=== PATIENT | female | born 1945 | race African-American/Black ===

== ENCOUNTER 2022-03-04 20:42 | Observation (INO) ==
[2022-03-04] MEDS ORDERED: DILTIAZEM 25 MG/5 ML VIAL IV STA (21:40)
[2022-03-04 21:45] LABS: Basophils # 0.1 10*3/uL (0.0-0.2); Basophils % 0.8 % (0.0-0.8); Eosinophils # 0.1 10*3/uL (0.0-0.87); Eosinophils % 1.3 % (0.00-10.9); Hemoglobin 12.6 GM/DL (12.0-16.0); Immature Granulocytes % 0.2 %; Immature Granulocytes Absolute 0.02 #; Lymphocytes # 1.7 10*3/uL (1.4-4.0); Lymphocytes % 18.4 % (21.3-54.2); Mean Corpuscular HGB Conc 30.7 GM/DL (32-36); Mean Corpuscular Volume 91.1 FL (87-102); Mean Platelet Volume 11.1 FL (9.6-12.0); Monocytes # 0.5 10*3/uL (0.11-0.8); Monocytes % 5.8 % (1.7-12.7); Neutrophils % 73.5 % (38.7-73.9); Platelet Count 344 T/CUMM (130-400); Red Cell Distribution Width 13.6 % (9.3-17.3); White Blood Count 9.2 T/CUMM (4-12)
[2022-03-04] MEDS ORDERED: DILTIAZEM INJ 100 MG in SODIUM CHLORIDE 0.9% 100 ML IV SCH (22:00)
[2022-03-04] MEDS ORDERED: DILTIAZEM CD 120 MG CAPSULE PO STA (22:39)
[2022-03-04 22:44] LABS: Albumin 3.6 G/DL (3.4-5.0); Bilirubin,Total 0.6 MG/DL (0.20-1.00); Osmolality,Calculated 276.4 MOS/KG (273-304); Potassium 3.8 MMOL/L (3.5-5.1); Total Protein 6.9 G/DL (6.4-8.2)
[2022-03-04 22:53] LABS: PT Patient Result 10.7 SECS (10.1-12.1); Partial Thromboplastin Time 21.4 SECS (23.7-32.9)
[2022-03-04] MEDS ORDERED: MAGNESIUM SULF RIDER 1 GM/100 ML PREMIX IV STA ×2 (23:02)
[2022-03-05] MEDS ORDERED: ONDANSETRON 4 MG/2 ML VIAL IV PRN (01:16)
[2022-03-05] MEDS ORDERED: ACETAMINOPHEN 325 MG TABLET PO PRN (01:16)
[2022-03-05] MEDS ORDERED: ALUMINUM/MAGNES/SIMETH MAX STR 30 ML UDCUP PO PRN (01:16)
[2022-03-05] MEDS ORDERED: DEXTROSE 10% 250 ML BAG IV PRN (01:23)
[2022-03-05] MEDS ORDERED: GLUCAGON 1 MG VIAL IM PRN (01:23)
[2022-03-05] MEDS: APIXABAN 5 MG TABLET PO SCH ×2 (03:34→22:34)
[2022-03-05] MEDS: MAGNESIUM OXIDE 400 MG TABLET PO SCH ×2 (03:34→22:34)
[2022-03-05 06:31] LABS: Calcium 9.7 MG/DL (8.5-10.1); Osmolality,Calculated 272.7 MOS/KG (273-304); Potassium 3.4 MMOL/L (3.5-5.1); Thyroid Stimulating Hormone 1.14 uIU/ml (0.358-3.74)
[2022-03-05 06:43] LABS: Basophils # 0.1 10*3/uL (0.0-0.2); Basophils % 0.6 % (0.0-0.8); Eosinophils # 0.1 10*3/uL (0.0-0.87); Eosinophils % 0.7 % (0.00-10.9); Hematocrit 41.6 VOL% (35.7-47.0); Hemoglobin 12.9 GM/DL (12.0-16.0); Immature Granulocytes % 0.5 %; Immature Granulocytes Absolute 0.06 #; Lymphocytes # 1.4 10*3/uL (1.4-4.0); Lymphocytes % 12.7 % (21.3-54.2); Mean Corpuscular Volume 93.1 FL (87-102); Mean Platelet Volume 11.8 FL (9.6-12.0); Monocytes # 0.7 10*3/uL (0.11-0.8); Monocytes % 6.4 % (1.7-12.7); Neutrophils % 79.1 % (38.7-73.9); Platelet Count 289 T/CUMM (130-400); Red Blood Count 4.47 MC/CUMM (3.8-5.5); Red Cell Distribution Width 13.7 % (9.3-17.3); White Blood Count 11.2 T/CUMM (4-12)
[2022-03-05] MEDS ORDERED: POTASSIUM CHLORIDE 20 MEQ TABLET PO ONE (08:21)
[2022-03-05] MEDS: INSULIN REGULAR 100 UNIT/ML SUBCUT SCH ×4 (09:19→22:35)
[2022-03-05] MEDS: DOCUSATE SODIUM 100 MG CAPSULE PO SCH ×2 (09:19→22:34)
[2022-03-05] MEDS: PANTOPRAZOLE 40 MG TABLET PO SCH (09:19)
[2022-03-05] MEDS ORDERED: METOPROLOL TARTRATE 25 MG TABLET PO SCH (12:00)
[2022-03-05 17:54] LABS: Hyaline Casts,Urine 5 /LPF (0-3); Mucus,Urine Occasional /LPF (Occasional); RBC,Urine 2 /HPF (0-4); Squamous Epithelial Cell,Urine Occasional /HPF (0-10)
[2022-03-05 17:55] LABS: Bilirubin,Urine Moderate mg/dL (Negative); Blood, Urine Negative (Negative); Glucose,Urine (UA) Negative (Negative); Ketones,Urine 80 mg/dL (Negative); Nitrite,Urine Negative (Negative); Protein,Urine Negative (Negative); Urine Appearance Clear (Clear); Urine Color Yellow (Yellow); Urine Specific Gravity 1.033 (1.001-1.035); Urine Urobilinogen 0.2 eU/dL (<2.0); Urine pH 5.5 (4.5-8.0)
[2022-03-05 18:57] LABS: Barbiturates Screen,Urine Negative (Negative); Benzodiazepines Screen,Urine Negative (Negative); Cannabinoid Screen,Urine Negative (Negative); Opiate Screen,Urine Negative (Negative); Phencyclidine Screen,Urine Negative (Negative)
[2022-03-05] MEDS ORDERED: METOPROLOL TARTRATE 5 MG/5 ML VIAL IV ONE (21:45)
[2022-03-05] MEDS: METOPROLOL TARTRATE 25 MG TABLET PO SCH (22:34)
[2022-03-05] MEDS: ASCORBIC ACID 500 MG TABLET PO SCH (22:34)
[2022-03-05] MEDS: LACTATED RINGERS 1,000 ML IV SCH (22:35)
[2022-03-05] MEDS ORDERED: DILTIAZEM 25 MG/5 ML VIAL IV ONE (23:30)
[2022-03-06 06:07] LABS: Basophils % 0.3 % (0.0-0.8); Eosinophils # 0.1 10*3/uL (0.0-0.87); Eosinophils % 0.9 % (0.00-10.9); Hematocrit 38.5 VOL% (35.7-47.0); Hemoglobin 11.5 GM/DL (12.0-16.0); Immature Granulocytes % 0.3 %; Immature Granulocytes Absolute 0.03 #; Lymphocytes # 1.8 10*3/uL (1.4-4.0); Lymphocytes % 20.2 % (21.3-54.2); Mean Corpuscular HGB Conc 29.9 GM/DL (32-36); Mean Corpuscular Volume 93.9 FL (87-102); Mean Platelet Volume 11.4 FL (9.6-12.0); Monocytes # 0.9 10*3/uL (0.11-0.8); Monocytes % 9.7 % (1.7-12.7); Neutrophils % 68.6 % (38.7-73.9); Platelet Count 276 T/CUMM (130-400); Red Cell Distribution Width 13.4 % (9.3-17.3)
[2022-03-06 06:28] LABS: Calcium 10.1 MG/DL (8.5-10.1); Osmolality,Calculated 269.1 MOS/KG (273-304); Potassium 4.4 MMOL/L (3.5-5.1)
[2022-03-06] MEDS: INSULIN REGULAR 100 UNIT/ML SUBCUT SCH ×3 (13:11→21:42)
[2022-03-06] MEDS: APIXABAN 5 MG TABLET PO SCH ×3 (13:12→21:42)
[2022-03-06] MEDS: MAGNESIUM OXIDE 400 MG TABLET PO SCH ×3 (13:12→21:44)
[2022-03-06] MEDS: DOCUSATE SODIUM 100 MG CAPSULE PO SCH ×3 (13:12→21:41)
[2022-03-06] MEDS: PANTOPRAZOLE 40 MG TABLET PO SCH ×2 (13:13→13:29)
[2022-03-06] MEDS: SIMVASTATIN 10 MG TABLET PO SCH ×2 (13:13→13:29)
[2022-03-06] MEDS: AMIODARONE 200 MG TABLET PO SCH ×3 (13:13→21:41)
[2022-03-06] MEDS: ASCORBIC ACID 500 MG TABLET PO SCH ×3 (13:14→21:42)
[2022-03-06] MEDS: LACTATED RINGERS 1,000 ML IV SCH ×2 (13:30→23:10)
[2022-03-06] MEDS ORDERED: ZINC OXIDE PASTE 113 GM TUBE TOP PRN (15:06)
[2022-03-07] MEDS: LACTATED RINGERS 1,000 ML IV SCH ×2 (02:45→14:26)
[2022-03-07 05:51] LABS: Basophils # 0.1 10*3/uL (0.0-0.2); Basophils % 0.5 % (0.0-0.8); Eosinophils # 0.1 10*3/uL (0.0-0.87); Hemoglobin 9.8 GM/DL (12.0-16.0); Immature Granulocytes % 0.4 %; Immature Granulocytes Absolute 0.04 #; Lymphocytes # 1.5 10*3/uL (1.4-4.0); Lymphocytes % 16.1 % (21.3-54.2); Mean Corpuscular HGB Conc 30.6 GM/DL (32-36); Mean Corpuscular Volume 94.1 FL (87-102); Mean Platelet Volume 11.8 FL (9.6-12.0); Monocytes % 10.9 % (1.7-12.7); Neutrophils % 71.1 % (38.7-73.9); Platelet Count 246 T/CUMM (130-400); Red Cell Distribution Width 13.3 % (9.3-17.3); White Blood Count 9.1 T/CUMM (4-12)
[2022-03-07 06:13] LABS: Calcium 9.9 MG/DL (8.5-10.1); Potassium 4.3 MMOL/L (3.5-5.1)
[2022-03-07] MEDS: PANTOPRAZOLE 40 MG TABLET PO SCH (09:37)
[2022-03-07] MEDS: ASCORBIC ACID 500 MG TABLET PO SCH (09:37)
[2022-03-07] MEDS: APIXABAN 5 MG TABLET PO SCH (09:37)
[2022-03-07] MEDS: SIMVASTATIN 10 MG TABLET PO SCH (09:37)
[2022-03-07] MEDS: AMIODARONE 200 MG TABLET PO SCH (09:37)
[2022-03-07] MEDS: DOCUSATE SODIUM 100 MG CAPSULE PO SCH (09:37)
[2022-03-07] MEDS: MAGNESIUM OXIDE 400 MG TABLET PO SCH (09:37)
[2022-03-07] MEDS: INSULIN REGULAR 100 UNIT/ML SUBCUT SCH ×2 (09:48→14:25)
[2022-03-07] MEDS: METOPROLOL TARTRATE 25 MG TABLET PO SCH (10:18)
[2022-03-07 15:57] VITALS: BP 138/64
[2022-03-08] MEDS ORDERED: AMIODARONE 200 MG TABLET PO SCH (09:00)
== END 2022-03-07 16:19 | disposition home or self-care (01) ==
LOC: EDBD → EDUNIT# → N.ED 20:42 → N.TELEN 20:42 → SUATTDRO 03-05 01:16 → N.TELEN 03-05 03:06
PROVIDERS: ADMIT Internal Medicine; ATTEND Internal Medicine